=== PATIENT | male | born 1955 | race Caucasian/White ===

== ENCOUNTER 2023-02-19 10:03 | Outpatient (CLI) | payer OTHER, SELFPAY ==
[2023-02-19] MEDS: PERFLUTREN LIPID MICROSPHERES 2 ML VIAL IV (11:20)
== END 2023-02-19 10:04 | disposition home or self-care (01) ==
PROVIDERS: Visit Provider Chiropractor
DX: I25.10 Atherosclerotic heart disease of native coronary artery without angina pectoris (principal); I51.7 Cardiomegaly
CPT/HCPCS: 93306; Q9957